=== PATIENT | male | born 1960 | race Two or more races ===

== ENCOUNTER 2018-06-17 08:31 | Emergency (ER) | payer OTHER ==
[~2018-06-17] VITALS: Ht 177.8 cm; Wt 90.7 kg
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
[2018-06-17 08:31] VITALS: BP 138/86
--- NOTE | 2018-06-17 08:35 | NUR ---
ED Nurse Note: PT DRESSED IN WEATHER APPROPRIATE CLOTHING. SANDWICH, JUICE, AND WATER PROVIDED FOR THE PT.
[2018-06-17] MEDS ORDERED: Tylenol #3 tab (300mg/30mg) PO ONE (08:45)
[2018-06-17] MEDS ORDERED: Tetanus/Diptheria/Pertussis Vaccine 0.5ml Syr IM ONE (08:45)
--- NOTE | 2018-06-17 08:51 | NUR ---
ED Nurse Note: PT TO CT VIA JENNA
--- NOTE | 2018-06-17 09:05 | NUR ---
ED Nurse Note: PT BACK FROM CT VIA JEN[facility]
--- NOTE | 2018-06-17 09:07 | NUR ---
ED Nurse Note: [employer] AT BEDSIDE
--- NOTE | 2018-06-17 09:39 | NUR ---
ED Nurse Note: RESOURCES FOR FREE HEALTH CLINICS, SHELTERS, AND MENTAL HEALTH CLINICS DISCUSSED AND GIVEN TO PT. PT VERBALIZES THAT HE WILL LOOK IN TO FINDING [facility] AT [facility]: [address] [place], [address].
--- NOTE | 2018-06-17 09:48 | Diagnostic Imaging Report ---
Indication: Headache Technique: Contiguous 5 mm thick transaxial imaging of the head obtained in a Siemens Sensation [address] scanner. Soft tissue and bone windows generated. Automatic Exposure Control was utilized. Total Dose length Product (DLP): 1411.[address] Dose Index Volume (CTDIvol): 70.38 mGy Comparison: none Findings: The size and configuration of the cortical sulci, basal cisterns, and ventricles are within normal limits for age. There is no mass effect, midline shift, or edema identified. There is no evidence of acute hemorrhage or abnormal intra-axial or extra-axial fluid collections. The bones and soft tissues are unremarkable. Mucosal thickening noted within the visualized paranasal sinuses. Impression: No mass effect, edema or acute bleed. Sinusitis The CT scanner at [facility] is accredited by the [employer] and the scans are performed using dose optimization techniques as appropriate to a performed exam including Automatic Exposure control.
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
[2018-06-17] MEDS ORDERED: Bacitracin Oint UD TOPIC ONE ×2 (10:24→10:30)
[2018-06-17] MEDS ORDERED: TYLENOL EXTRA500 MG ORAL (10:40)
[2018-06-17 10:47] VITALS: BP 132/84
--- NOTE | 2018-06-17 10:49 | NUR ---
ED Nurse Note: PT LAYING PEACEFULLY IN BED IN NAD. AOX4. PRESCRIPTIONS AND DISCHARGE PAPERWORK EXPLAINED TO PT. PT VERBALIZES UNDERSTANDING AND ALL QUESTIONS ANSWERED. PRESCRIPTIONS AND DISCHARGE PAPERWORK GIVEN TO PT AND ID WRISTBAND REMOVED. PT STATES HE WILL BE HEADING TO [facility] AT [address] [facility] [facility], [address]. PT GIVEN MORE FOOD, WATER, AND JUICE. PT WALKED OUT OF ER WITH STEADY GAIT.
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
== END 2018-06-17 10:57 | disposition home or self-care (01) ==
LOC: EDBD 08:31 → EMR 09:21
DX: S00.83XA Contusion of other part of head, initial encounter (principal); Z23 Encounter for immunization; Y04.2XXA Assault by strike against or bumped into by another person, initial encounter
CPT/HCPCS: 70450; 70486; 90471; 90715; 99284